=== PATIENT | male | born 1960 | race African-American/Black ===

== ENCOUNTER 2024-05-13 14:41 | Emergency (ER) | payer MEDICAID, SELFPAY ==
[2024-05-13 14:49] VITALS: BP 106/77; BP 150/80; PULSE 66; PULSE 72; RESP 20; TEMP 36.9; O2SAT 96; O2SAT 98; BMI 21.6
--- OUTSIDE RECORDS SUMMARY | 2024-05-13 15:30 | XMS_ITS | Continuity of Care Document ---
Author Organization [facility] Address [address] [place] [address], [address]r d Floor, [address] [place] [phone]- Care Team Providers Care Summer Law Clerk Name Role Phone Jose M Leach MD Primary Care Physician [phone] Encounter [facility] [id number] Date(s): 03/19/24 - 04/18/24 [facility] [address] [place] [address] 3rd Floor, [address] [place] [id number] Patient Care team information Care Team Personnel Name: Jose M Leach MD Position: S Outreach Member Role: PCP Address: Address: [address] [place] [address] Emergency Medicine [place], [place] [address]
--- OUTSIDE RECORDS SUMMARY | 2024-05-13 15:30 | XMS_ITS | Continuity of Care Document ---
Author Organization [facility] Address [address] [place] [address], [address]r d Floor, [address] [place] [phone] Care Team Providers Care Leathersmith Name Role Phone Jose M Leach MD Primary Care Physician En[place] [facility] Date(s): 03/20/24 - 04/19/24 [facility] [address] [facility] 3rd Floor, [address] [place] [phone]- Patient Care team information Care Team Personnel Name: Jose M Leach MD Position: [facility] Outreach Member Role: PCP Address: Address: [address] [place] [address] Emergency Medicine [place], [place] [address]
--- NOTE | 2024-05-13 16:05 | ED.GENADULT ---
HPI - General Adult General Chief complaint: General Medical Stated complaint: THROAT IRRITATION Time Seen by Provider: 05/13/24 15:56 Source: patient and EMS Mode of arrival: EMS Limitations: no limitations History of Present Illness ED Provider: Shaye Campa PA-C HPI narrative: Patient is a 64 year old assigned male at with no reported medical history presenting to the emergency department today with throat pain after taking his pills this morning. Patient states that he took his medicine and then his throat began to hurt. Patient states that he is able to drink and eat without issue. Patient denies any dizziness, lightheadedness, abdominal pain, nausea, vomiting, fever, chills, blurry vision, double vision, loss of vision, chest pain, difficulty breathing, shortness of breath, back pain, night sweats, pain with urination, increased urinary frequency, increased urinary urgency, blood in his urine or stool, syncope or a near syncopal episode, bowel incontinence, bladder incontinence, or any other complaints at this time. Relieving factors: none Exacerbating factors: none Associated symptoms: denies other symptoms Treatments prior to arrival: none Related Data Allergies Allergy/AdvReac Type Severity Reaction Status Date / Time Penicillins Allergy Unknown Verified 05/13/24 14:59 Review of Systems Constitutional: Constitutional: Reports no additional constitutional complaints, Denies chills, Denies fever(s) and Denies night sweats Eyes: Eyes: Reports no additional eye complaints, Denies blurry vision, Denies change in vision, Denies diplopia, Denies eye discharge, Denies loss of vision and Denies eye pain ENT: Denies dizziness Comments: throat pain Cardiovascular: Cardiovascular: Reports no additional cardiovascular complaints, Denies chest pain, Denies lightheadedness, Denies Loss of Consciousness and Denies dyspnea Respiratory: Respiratory: Reports no additional respiratory complaints and Denies dyspnea Gastrointestinal: Gastrointestinal: Reports no additional gastrointestinal complaints, Denies abdominal pain, Denies melena, Denies hematochezia, Denies change in bowel habits and Denies change in stool character Genitourinary: Genitourinary: Reports no additional male genitourinary complaints, Denies hematuria, Denies oliguria, Denies difficulty urinating, Denies dysuria, Denies urinary frequency, Denies urinary hesitancy, Denies urinary incontinence and Denies urinary urgency Musculoskeletal: Musculoskeletal: Reports no additional musculoskeletal complaints, Denies numbness and Denies tingling Neurologic: Denies dizziness, Denies loss of vision, Denies numbness and Denies tingling Psychiatric: Psychiatric: Reports no additional psychiatric complaints Endocrine: Endocrine: Reports no additional endocrine complaints Hematologic/Lymphatic: Hematologic/Lymphatic: Reports no additional hematologic/lymphatic complaints Allergic/Immunologic: Allergic/Immunologic: Reports no additional allergic/immunologic complaints PMFSH Past Medical History Attestation statement: The following information was validated with the patient. Source: old records reviewed and nursing notes reviewed Social History Social History Smoked in Last 30 Days: No Use of substances other than those prescribed or required for medical reasons: No Advance Directives: No Advance Directives Information Provided: No Do you have a plan to hurt others: No Plan Physical Exam ED Vital Signs: Vital Signs - 24 hr 05/13/24 14:49 Temperature 98.5 F Pulse Rate 66 Respiratory Rate 20 Blood Pressure 106/77 Pulse Oximetry 96 Oxygen Delivery Method Room Air BMI result Body Mass Index 21.6 Const General: cooperative, no acute distress, alert and awake Nutritional Appearance: well nourished Orientation/consciousness: patient oriented x3 Limitations: no limitations HENMT Head: Yes normal to inspection and Yes atraumatic Ears: hearing grossly normal bilaterally and external ears normal General nose exam: Normal external nose present, no nasal discharge noted and no epistaxis Face and sinus: Yes normal facial exam, No abrasion and No laceration Mouth: Normal oral and palatal mucosa present, no drooling and no muffled voice Eyes General: appearance normal, both eyes and all related structures Periorbital: periorbital findings normal Eyelids: Yes eyelids normal Conjunctivae: conjunctivae normal Pupils: Equal, round and reactive pupils present EOM: EOMs intact bilaterally Neck Neck: Yes normal visual inspection, Yes full ROM and Yes no lymphadenopathy Chest Chest palpation & inspection: normal inspection of the chest Resp Effort & Inspection: normal respiratory effort and able to speak in complete sentences GI Inspection: Yes normal to inspection Neuro General: patient oriented x3 and moves all extremities Cranial nerves: Yes Equal, round and reactive pupils present Cognition (Neuro): normal cognition Extrem General: Yes normal to inspection, Yes full ROM and Yes capillary refill normal Psych Appearance: grossly normal Mental Status: mental status grossly normal Affect: normal affect Attitude: cooperative Thought process: Normal thought process present Thought content: Normal thought content present Insight: Good insight present (Psych) Medical Decision Making Medical Decision Making [facility] Narrative: Patient is a 64 year old assigned male at with no reported medical history presenting to the emergency department today with a sore throat after swallowing a pill. Patient's physical exam was unremarkable. Patient's COVID-19, influenza, RSV, and strep tests were negative. I explained my physical exam findings as well as all test results to the patient. I answered all questions asked by the patient. I stressed the importance of the patient taking his medication as directed (either prescribed or as the over the counter packaging recommends). I stressed the importance of the patient following up with his primary care provider. I stressed the importance of the patient returning to the emergency department immediately if his symptoms were to worsen or if he were to develop any dizziness, shortness of breath, difficulty breathing, chest pain, blurry vision, loss of vision, nausea, vomiting, abdominal pain, fever, chills, back pain, or any other complaints. Patient verbalized agreement and understanding with this treatment plan and discharge. Differential Diagnosis Differential Diagnoses: The differential diagnosis associated with the presentation includes Esophagitis Pill esophagitis COVID-19 Influenza RSV Strep pharyngitis Pharyngitis Admission/Observation Consideration of admission/observation: Escalation of care including admission/observation considered Patient would have been admitted to the hospital had his work up had any findings where hospital admission was appropriate and his clinical presentation warranted hospital admission. Lab Data [facility] Lab Attestation statement: I reviewed the patient's lab results. My interpretation of these results are in the [facility] Rationale portion of this note. Labs: Lab Results 05/13/24 Range/Units 16:30 Influenza Type A (PCR) NEGATIVE (Negative) Influenza Type B (PCR) NEGATIVE (Negative) RSV RNA Qual (PCR) NEGATIVE (Negative) SARS-CoV-2 RNA (RT-PCR) NEGATIVE (Negative) S. pyogenes GrpA ANGEL Negative (Negative) Independent Historian Clinical information obtained from an independent historian. History obtained from or confirmed by: EMS (EMS provided additional history and confirmed the history provided by the patient.) Discharge Plan Discharge Clinical Impression: Pill esophagitis Patient Disposition: Home, Self-Care Instructions: Esophagitis (ED) Additional Instructions: Follow up with your primary care provider. Return to the emergency department immediately if your symptoms worsen or if you develop any dizziness, shortness of breath, difficulty breathing, chest pain, blurry vision, loss of vision, nausea, vomiting, abdominal pain, fever, chills, back pain, or any other complaints. Referrals: JENNYFER ANNA [Primary Care Provider] - Print Language: Brazilian
[2024-05-13 16:46] LABS: IDNOW Serial# 58CA691E; Strep A Nucleic Acid Negative (Negative)
[2024-05-13 17:12] LABS: Influenza A PCR NEGATIVE (Negative); Influenza B PCR NEGATIVE (Negative); Resp Syncy Virus RNA Qual PCR NEGATIVE (Negative); SARS COV2 PCR INHOUSE NEGATIVE (Negative)
--- NOTE | 2024-05-13 17:44 | PC.NURSE ---
patient ambulance booked, ambulatory with steady gait to bathroom offering no complaints at this time, able to tolerate PO fluids without issue
--- NOTE | 2024-05-13 19:13 | PC.NURSE ---
This RN assumed pt care @ 1900. Pt ambulated to the restroom with a steady gait [facility] Plan of care ongoing.
[2024-05-13 20:16] VITALS: BP 106/77; PULSE 66; RESP 20; TEMP 36.9; O2SAT 96
== END 2024-05-13 20:20 | disposition home or self-care (01) ==
PROVIDERS: Physician Assistant Medical; Emergency Provider Emergency Medicine Emergency Medical Services; PCP Emergency Medicine
DX: K20.80 Other esophagitis without bleeding (principal); R07.0 Pain in throat; Z03.818 Encounter for observation for suspected exposure to other biological agents ruled out
CPT/HCPCS: 0241U; 87651; 99283; 99284